=== PATIENT | male | born 1960 | race Caucasian/White ===

== ENCOUNTER 2020-05-23 10:36 | Outpatient (CLI) | payer OTHER, SELFPAY ==
--- NOTE | 2020-05-23 11:12 | DI.RAD_ITS ---
EXAM: XR WRIST LT COMPLETE CLINICAL HISTORY: UNSPECIFIED INJURY LT WRIST, HAND,PAIN, CONTUSION,S69.92XA. TECHNIQUE: 2D digital imaging was performed. COMPARISON: No exams were available for comparison FINDINGS: No evidence of fracture nor carpal dislocation. No significant ulnar variance. Bone density is norm al. No degenerative changes nor erosions evident. No radiopaque foreign body. IMPRESSION: No significant radiographic findings in the left wrist. DATA REPOSITORY: RADIATION DOSE DELIVERED:
--- NOTE | 2020-05-23 11:12 | DI.RAD_ITS ---
EXAM: XR HAND LT COMPLETE CLINICAL HISTORY: WORK RELATED INJURY,CONTUSION,S69.92XA. TECHNIQUE: 2D digital imaging was performed. COMPARISON: No exams were available for comparison FINDINGS: No evidence of acute fracture nor dislocation. On the lateral view no degenerative changes in the DI P joints, most prominent in the 2nd and 3rd fingers. In 3rd finger there is a small calcific density off the dorsal aspect of the IP joint noted. There is also a nonacute appearing 2 x 1 millimeter ca lcific density seen off the dorsal aspect of the proximal phalanx of the thumb, adjacent to its base. Some degenerative changes in the interphalangeal joint of the thumb are noted. No ominous osseous lesions. No erosions. Metacarpophalangeal joints appear unremarkable. Bone density is normal. IMPRESSION: Findings as above but no evidence of fracture. 2 x 1 millimeter density off the dorsal aspect of the proximal phalanx of the thumb. There is no overlying skin laceration. DATA REPOSITORY: RADIATION DOSE DELIVERED:
== END 2020-05-23 10:56 ==
PROVIDERS: Visit Provider Physician Assistant Medical
DX: M79.642 Pain in left hand (principal); S69.92XA Unspecified injury of left wrist, hand and finger(s), initial encounter
CPT/HCPCS: 73110; 73130

== ENCOUNTER 2020-07-09 11:22 | Outpatient (CLI) | payer OTHER, SELFPAY ==
--- NOTE | 2020-07-09 11:15 | DI.RAD_ITS ---
EXAM: XR WRIST LT COMPLETE CLINICAL HISTORY: left wrist pain. TECHNIQUE: 2D digital imaging was performed. COMPARISON: CR XR WRIST LT COMPLETE from 05/23/2020 FINDINGS: Three views reveal no evidence of acute fracture nor dislocation or significant ulnar variance. Bone density is normal. The lateral view there is a bony excrescence-osteochondroma coming off neck of the thumb metacarpal w hich measures approximately 8 millimeters by 5 millimeters. IMPRESSION: DATA REPOSITORY: RADIATION DOSE DELIVERED:
== END 2020-07-09 11:23 | disposition home or self-care (01) ==
LOC: DIORS 11:23
PROVIDERS: Visit Provider Physician Assistant
DX: M25.532 Pain in left wrist (principal)
CPT/HCPCS: 73110